=== PATIENT | male | born 1980 | race Caucasian/White ===

== ENCOUNTER 2018-01-19 18:04 | Emergency (ER) | payer OTHER ==
[2018-01-19 18:30] VITALS: TEMP 98.3
--- NOTE | 2018-01-19 18:39 | ED ---
Recheck HPI - General Chief Complaint: Recheck/Abnormal Lab/Rx Stated Complaint: HYPERTENSION Time Seen by Provider: 01/19/18 18:35 Source: patient, RN notes reviewed, old records reviewed Mode of arrival: ambulatory Limitations: no limitations - History of Present Illness Initial Comments: This is a 37-year-old male the ER for evaluation. Presents today for evaluation regarding his blood pressure being elevated. Patient states he is a symptomatically chest pain shortness breath or abdominal pain. He has been taking his lisinopril as directed alone is very low-dose 25 mg. Patient is only recent cellulitis, he has no elevated blood pressure quite some time but never took advantage took care of his health, patient resents a started on blood pressure medication although it is not adequately controlling his blood pressure. Patient with physical today showing elevated blood pressure was sent to emergency room for treatment. MD Complaint: other (Elevated blood pressure) -: year(s) Returns Today for: request for prescription (Blood pressure control) Symptoms Since Prior Visit: no new symptoms Associated Symptoms: none - Related Data Home Medications Medication Instructions Recorded Confirmed Aspirin/Acetaminophen/Caffeine 3 tab PO DAILY PRN 01/19/18 01/19/18 [Excedrin Migraine Caplet] Lisinopril [Zestril] 5 mg PO DAILY 01/19/18 01/19/18 Previous Rx's Medication Instructions Recorded Lisinopril-Hctz 10-12.5 mg 1 tab PO DAILY #30 tab 01/19/18 [Zestoretic 10-12.5] Metoprolol Tartrate [Lopressor] 50 mg PO BID #60 tab 01/19/18 Allergies Allergy/AdvReac Type Severity Reaction Status Date / Time No Known Allergies Allergy Verified 01/19/18 19:39 Review of Systems ROS Statement: Those systems with pertinent positive or pertinent negative responses have been documented in the HPI. ROS Other: All systems not noted in ROS Statement are negative. Past Medical History Past Medical History: No Reported History History of Any Multi-Drug Resistant Organisms: None Reported Past Surgical History: No Surgical Hx Reported Past Psychological History: No Psychological Hx Reported Smoking Status: Never smoker Past Alcohol Use History: None Reported Past Drug Use History: None Reported General Exam Limitations: no limitations General appearance: alert, in no apparent distress, obese Head exam: Present: atraumatic, normocephalic, normal inspection Eye exam: Present: normal appearance, PERRL, EOMI. Absent: scleral icterus, conjunctival injection, periorbital swelling ENT exam: Present: normal exam, mucous membranes moist Neck exam: Present: normal inspection. Absent: tenderness, meningismus, lymphadenopathy Respiratory exam: Present: normal lung sounds bilaterally. Absent: respiratory distress, wheezes, rales, rhonchi, stridor Cardiovascular Exam: Present: regular rate, normal rhythm, normal heart sounds. Absent: systolic murmur, diastolic murmur, rubs, gallop, clicks GI/Abdominal exam: Present: soft, normal bowel sounds. Absent: distended, tenderness, guarding, rebound, rigid Extremities exam: Present: normal inspection, full ROM, normal capillary refill. Absent: tenderness, pedal edema, joint swelling, calf tenderness Back exam: Present: normal inspection Neurological exam: Present: alert, oriented X3, CN II-XII intact Psychiatric exam: Present: normal affect, normal mood Skin exam: Present: warm, dry, intact, normal color. Absent: rash Course Vital Signs 01/19/18 01/19/18 01/19/18 18:27 19:22 19:28 Temperature 98.3 F Pulse Rate 108 H 96 96 Respiratory 18 20 16 Rate Blood Pressure 185/136 172/106 180/98 O2 Sat by Pulse 97 97 98 Oximetry 01/19/18 19:54 Temperature Pulse Rate 93 Respiratory 18 Rate Blood Pressure 152/109 O2 Sat by Pulse 98 Oximetry - Reevaluation(s) Reevaluation #1: 01/19/18 20:09 Medical record is reviewed Reevaluation #2: 01/19/18 20:10 Patient is completely asymptomatic Medical Decision Making - Medical Decision Making 37 male the ER for evaluation regarding hypertensive urgency, patient was getting implanted physical and noted that is severely elevated blood pressure. Patient's blood pressure improved here in the ER, will be discharged home on blood pressure medications - EKG Data -: EKG Interpreted by Me (EKG shows sinus tachycardia about 2, ID [id number], QRS 06, QTc 490) Disposition Clinical Impression: Hypertension Disposition: HOME SELF-CARE Condition: Good Instructions: Chronic Hypertension (ED) Prescriptions: Lisinopril-Hctz 10-12.5 mg [Zestoretic 10-12.5] 1 tab PO DAILY #30 tab Metoprolol Tartrate [Lopressor] 50 mg PO BID #60 tab Is patient prescribed a controlled substance at d/c from ED?: No Referrals: None,Stated [Primary Care Provider] - 1-2 days
[2018-01-19] MEDS ORDERED: cloNIDine HCL 0.1 MG TAB PO STA (19:02)
[2018-01-19] MEDS ORDERED: METOPROLOL TARTRATE 50 MG TAB PO STA (19:02)
[2018-01-19 19:55] VITALS: RESP 18
[2018-01-19 21:18] VITALS: BP 143/92; PULSE 92
== END 2018-01-19 21:20 | disposition home or self-care (01) ==
LOC: EC 18:04
DX: I10 Essential (primary) hypertension (principal); Z79.899 Other long term (current) drug therapy
CPT/HCPCS: 93005; 99284

== ENCOUNTER 2020-05-02 00:58 | Emergency (ER) | payer OTHER ==
[~2020-05-02 00:58] MED LIST: EPINEPHrine 10 ML SYRINGE (0.1 MG/ML) ONE
[2020-05-02 01:01] VITALS: PULSE 0; RESP 0
--- NOTE | 2020-05-02 01:13 | ED ---
CPR HPI - General Chief Complaint: Cardiac Arrest/CPR Stated Complaint: cardiac arrest Time Seen by Provider: 05/02/20 01:06 Source: EMS Mode of arrival: EMS Limitations: altered mental status - History of Present Illness Initial Comments: This patient is a 39-year-old man brought by ambulance after he had suspected cardiac arrest at home. History is from EMS personnel. They reportedly received a call at 1159pm and responded to find patient with no vital signs on the scene. He had reportedly been in bed and then his significant other had heard him fall from bed and found him unresponsive. EMS reports that initially monitor showed asystole, and they started ACLS protocol. The patient did briefly go into ventricular fibrillation, had defibrillation, and then was briefly and WAISTLINE JOINER LOCKSTITCH before going back into asystole. They reported that ACLS protocol had been in progress for over 45 minutes by arrival at the hospital. MD Complaint: other Onset/Timin -: hour(s) Place: home Number of Shocks Delivered: 1 Initial Findings in the Field: unresponsive, no respirations, no pulse ROSC in the Field: No Associated Injuries: No Treatments Prior to Arrival: intubation, chest compressions (continuous), defibrillated shocks # (1), epinephrine mgs # (7), sodium bicarbonate (1), amiodarone (Loading dose) - Related Data Home Medications Medication Instructions Recorded Confirmed Aspirin/Acetaminophen/Caffeine 3 tab PO DAILY PRN 01/19/18 01/19/18 [Excedrin Migraine Caplet] lisinopriL [Zestril] 5 mg PO DAILY 01/19/18 01/19/18 Previous Rx's Medication Instructions Recorded Lisinopril-Hctz 10-12.5 mg 1 tab PO DAILY #30 tab 01/19/18 [Zestoretic 10-12.5] Metoprolol Tartrate [Lopressor] 50 mg PO BID #60 tab 01/19/18 Allergies Allergy/AdvReac Type Severity Reaction Status Date / Time No Known Allergies Allergy Verified 01/19/18 19:39 Review of Systems ROS Statement: Those systems with pertinent positive or pertinent negative responses have been documented in the HPI. ROS Other: All systems not noted in ROS Statement are negative. Limitations: ROS unobtainable due to patients medical condition Past Medical History Past Medical History: No Reported History History of Any Multi-Drug Resistant Organisms: None Reported Past Surgical History: No Surgical Hx Reported Past Psychological History: No Psychological Hx Reported Past Alcohol Use History: None Reported Past Drug Use History: None Reported General Exam Limitations: no limitations General appearance: other (Unresponsive) Head exam: Present: atraumatic, normocephalic Pupils: Present: other (Pupils midrange and unresponsive) ENT exam: Present: other (There is a Lon tube with bite-block secured) Neck exam: Present: normal inspection, other (No step off or palpable deformity) Respiratory exam: Present: other (There is no spontaneous inspiratory effort. Bagging does reveal bilateral breath sounds with a few scattered rhonchi.) Cardiovascular Exam: Present: other (No palpable PMI. No cardiac sounds. No palpable pulses) GI/Abdominal exam: Present: hernia (There is an umbilical hernia. There are no bowel sounds). Absent: tenderness exam: Present: normal inspection Extremities exam: Present: other (There is an intraosseous line at the right pretibial area.). Absent: normal capillary refill, pedal edema Neurological exam: Present: other (There are no neurologic signs of life. GCS is 3. No cranial nerve or deep tendon reflexes) Skin exam: Present: intact, cyanosis. Absent: warm, rash Course Vital Signs 05/02/20 00:59 Pulse Rate 0 L Respiratory 0 L Rate Medical Decision Making - Medical Decision Making This patient is a 39-year-old man brought by ambulance after he had been heard to collapse at home and was found unresponsive. EMS had responded and performed ACLS protocol for 45 minutes with patient arriving here in asystole. The patient was given additional epinephrine and course of CPR with no change. Given the down time and lack of response to medications, pronounced at 0103. Case is discussed with the certified medical technician's on-call and they would like [place] [facility] [place] #[id number]. Disposition Clinical Impression: Cardiopulmonary arrest Disposition: Condition: Undetermined Is patient prescribed a controlled substance at d/c from ED?: No Referrals: None,Stated [Primary Care Provider] - 1-2 days Preliminary Cause of : Cardiopulmonary arrest
== END 2020-05-02 04:15 | disposition expired ==
LOC: SUPCPDRO 00:58 → EC 00:58
DX: I46.9 Cardiac arrest, cause unspecified (principal); Z79.899 Other long term (current) drug therapy
CPT/HCPCS: 99285